=== PATIENT | female | born 1970 | race Caucasian/White ===

== ENCOUNTER 2023-11-21 08:35 | Day surgery (SDC) | payer OTHER ==
[2023-11-15 15:35] VITALS: BMI 20.3
[2023-11-21 10:19] VITALS: TEMP 97.9
[2023-11-21 10:21] VITALS: BP 115/62; PULSE 45; RESP 19
== END 2023-11-21 10:32 | disposition home or self-care (01) ==
LOC: FASU-ENDO 08:35
PROVIDERS: ATTEND Internal Medicine Gastroenterology
PROC: 0DJD8ZZ Inspection of Lower Intestinal Tract, Via Natural or Artificial Opening Endoscopic (ICD-10-PCS; principal; 2023-11-21 09:41)
DX: Z12.11 Encounter for screening for malignant neoplasm of colon (principal)